=== PATIENT | female | born 1970 | race Two or more races ===

== ENCOUNTER 2019-11-26 10:11 | Outpatient (CLI) | payer OTHER, BC | END 2019-11-26 23:59 | disposition home or self-care (01) | LOC: STAR 10:11 | PROVIDERS: ATTEND Surgery | DX: Z01.812 Encounter for preprocedural laboratory examination (principal); Z20.828 Contact with and (suspected) exposure to other viral communicable diseases | CPT/HCPCS: 36415; 84432; 86800; 87635 ==

== ENCOUNTER 2019-11-30 06:16 | Inpatient (IN) | payer OTHER, BC ==
[~2019-11-30] VITALS: Ht 149.9 cm; Wt 65.1 kg
[2019-11-30] MEDS ORDERED: LACTATED RINGERS 1,000 ML IV ONE (07:00)
[2019-11-30] MEDS ORDERED: CHLORHEXIDINE 15 ML UDC MM STA (07:00)
[2019-11-30] MEDS ORDERED: CHLORHEXIDINE 15 ML UDC ONE (07:02)
[2019-11-30] MEDS ORDERED: ACETAMINOPHEN 500 MG TABLET PO STA (07:08)
[2019-11-30] MEDS ORDERED: ONDANSETRON ODT 8 MG PO STA (07:08)
[2019-11-30] MEDS ORDERED: DIAZEPAM 5 MG TABLET PO STA (07:08)
[2019-11-30 07:31] LABS: HCG UR SG 1.017 (1.003-1.030)
[2019-11-30] MEDS ORDERED: PROPOFOL 50 ML ONE (07:55)
[2019-11-30] MEDS ORDERED: FENTANYL PF 250 MCG/5ML ONE (07:56)
[2019-11-30] MEDS ORDERED: MIDAZOLAM 1 MG/ML, 2ML ONE (07:56)
[2019-11-30] MEDS ORDERED: DEXAMETHASONE 4 MG/ML, 1ML ONE (09:26)
[2019-11-30] MEDS ORDERED: ONDANSETRON 2MG/ML, 2ML ONE (09:27)
[2019-11-30] MEDS ORDERED: SUCCINYLCHOLINE 20 MG/ML, 10ML ONE (09:27)
[2019-11-30] MEDS ORDERED: LABETALOL 5MG/ML, 20ML IV PRN (09:30)
[2019-11-30] MEDS ORDERED: EPHEDRINE 50 MG/ML, 1ML IM PRN (09:30)
[2019-11-30] MEDS ORDERED: ONDANSETRON 2MG/ML, 2ML IVPush PRN (09:30)
[2019-11-30] MEDS ORDERED: DIPHENHYDRAMINE 50 MG/ML, 1ML IVPush PRN (09:30)
[2019-11-30] MEDS ORDERED: MEPERIDINE/PF 25MG/0.5ML IVPush PRN (09:30)
[2019-11-30] MEDS ORDERED: morphine SULFATE 10 MG/ML, 1ML IVPush PRN (09:30)
[2019-11-30] MEDS ORDERED: EPHEDRINE 50 MG/ML, 1ML IVPush PRN (09:30)
[2019-11-30] MEDS ORDERED: OXYcodone 5 MG/5 ML ORAL.SOL UDC PO PRN (09:30)
[2019-11-30] MEDS ORDERED: PROMETHAZINE 25 MG/ML, 1ML IVPush PRN (09:30)
[2019-11-30] MEDS ORDERED: DIAZEPAM 5 MG/ML, 2ML IVPush PRN (09:30)
[2019-11-30] MEDS ORDERED: OXYcodone 5 MG/5 ML ORAL.SOL UDC ONE (10:34)
[2019-11-30] MEDS ORDERED: FENTANYL PF 100 MCG/2ML ONE (10:34)
[2019-11-30] MEDS: FENTANYL PF 100 MCG/2ML IV PRN ×3 (10:40→10:55)
[2019-11-30] MEDS ORDERED: ONDANSETRON 2MG/ML, 2ML IV PRN (12:00)
[2019-11-30] MEDS ORDERED: morphine SULFATE 10 MG/ML, 1ML IV PRN (12:00)
[2019-11-30 12:38] VITALS: BP 129/88
[2019-11-30] MEDS: HYDROcodone/APAP 5/325 TABLET PO PRN ×2 (16:31→20:44)
[2019-11-30 18:30] LABS: ALBUMIN 3.2 g/dL (3.4-5.0); CALCIUM 8.4 mg/dL (8.5-10.1)
[2019-11-30 19:02] VITALS: BP 127/99
[2019-11-30] MEDS: LACTATED RINGERS 1,000 ML IV SCH (19:30)
[2019-12-01 00:29] LABS: ALBUMIN 2.9 g/dL (3.4-5.0); CALCIUM 7.9 mg/dL (8.5-10.1)
[2019-12-01 01:10] VITALS: BP 116/78
[2019-12-01 04:22] VITALS: BP 121/80
[2019-12-01 06:39] LABS: CALCIUM 8.3 mg/dL (8.5-10.1)
[2019-12-01] MEDS: HYDROcodone/APAP 5/325 TABLET PO PRN (06:39)
[2019-12-01 07:22] VITALS: BP 123/81
[2019-12-01] MEDS: LACTATED RINGERS 1,000 ML IV SCH (08:50)
[2019-12-01] MEDS ORDERED: HYDR-3240 PO (08:58)
[2019-12-01] MEDS ORDERED: LEVO125T PO (08:58)
[2019-12-01] MEDS ORDERED: CALC400T6 PO (08:59)
== END 2019-12-01 10:15 | disposition home or self-care (01) | DRG 627 ==
LOC: OUT 06:16 → 4NE 11:18 → OUT 11:24 → 4NE 11:24 → DCLOUNGE 12-01 09:55
PROVIDERS: ADMIT Surgery; ATTEND Surgery
PROC: 0GTK0ZZ Resection of Thyroid Gland, Open Approach (ICD-10-PCS; principal; 2019-11-30 09:00)
DX: E04.2 Nontoxic multinodular goiter (principal); R13.10 Dysphagia, unspecified
CPT/HCPCS: 36415; 81025; 82040; 82310; 88307; G0378; J1100; J2250; J2405; J2704; J3010; Q0162; C1760; J0330; J7120

== ENCOUNTER 2020-02-27 02:04 | Emergency (ER) | payer BC, OTHER ==
[~2020-02-27] VITALS: Ht 149.9 cm; Wt 62.0 kg
[~2020-02-27 02:04] MED LIST: CALC400T6 PO; HYDR-3240 PO; LEVO125T PO
--- NOTE | 2020-02-27 02:46 | NUR ---
PT IN BED, FAMILY AT BEDSIDE. IV STARTED, LABS DRAWN. PT PROVIDED WITH WARM BLANKETS. DENIES ANY FURTHER NEEDS OR CONCERNS AT THIS TIME, CALL LIGHT IN REACH.
[2020-02-27 03:51] VITALS: BP 131/87
[2020-02-27 03:59] LABS: ALBUMIN 3.7 g/dL (3.4-5.0); ANION GAP 4 mmol/L (5-15); CALCIUM 8.9 mg/dL (8.5-10.1); CHLORIDE 108 mmol/L (98-107); CREATININE 1.02 mg/dL (0.55-1.02)
[2020-02-27 04:00] LABS: BASOPHILS % (AUTO) 0 % (0-1); EOSINOPHILS % (AUTO) 1 % (1-7); LYMPHOCYTES % (AUTO) 25 % (22-44); MEAN CORPUSCULAR HEMOGLOBIN 27.5 pg (27.0-34.8); MEAN CORPUSCULAR HGB CONC 32.6 g/dL (32.4-35.8); MONOCYTES % (AUTO) 8 % (2-9); NEUTROPHILS % (AUTO) 65 % (42-75); PLATELET COUNT 333 x10^3/uL (130-400); RED BLOOD COUNT 5.47 x10^6/uL (3.82-5.3); RED CELL DISTRIBUTION WIDTH 13.4 % (9.6-15.2)
[2020-02-27 04:03] LABS: TROPONIN I < 0.015 ng/mL (0.000-0.045)
[2020-02-27 04:16] LABS: MD NO
--- NOTE | 2020-02-27 04:39 | NUR ---
ERP AT BEDSIDE AT THIS TIME.
== END 2020-02-27 04:58 | disposition home or self-care (01) ==
LOC: ED 04:20
DX: R07.89 Other chest pain (principal); M25.512 Pain in left shoulder; I10 Essential (primary) hypertension
CPT/HCPCS: 36415; 71045; 80048; 82040; 84484; 85025; 93005; 99285